=== PATIENT | female | born 1995 | race Caucasian/White ===

== ENCOUNTER 2021-02-10 06:29 | Emergency (ER) | payer OTHER ==
--- NOTE | 2021-02-10 06:59 | EDM.PDOC ---
ED HPI GENERAL MEDICAL PROBLEM - General Chief Complaint: Allergic Reaction Stated Complaint: POSSIBLE ALLEGIC REACTION Time Seen by Provider: 02/10/21 06:34 - History of Present Illness INITIAL COMMENTS - FREE TEXT/NARRATIVE: History of present illness: [] Patient woke up at 530 and her left arm was numb. She moved that about and it was slow to get better. This caused her some concern. She felt dizzy while still in bed but it was not a spinning vertigo nor lightheaded like like she would pass out. Then she began to have tingling in her fingers as well as tingling in her lips. That got better but now her legs are numb. Everything since the initial numbness in the left arm has been bilateral and symmetric. The patient has no motor weakness. She had no abnormal gait. She did note that she had palpitations and felt like her heart was racing briefly shortly after the episode. There is no diaphoresis. The patient took the first dose of her new rpescription Loestrin last night. Review of systems: As per history of present illness and below otherwise all systems reviewed and negative. Past medical history: The patient has a history of syncopal episodes. These are preceded by lightheadedness. She has had these occasionally throughout her life. Otherwise as per history of present illness and as reviewed below otherwise noncontributory. Surgical history: As per history of present illness and as reviewed below otherwise noncontributory. Social history: The patient is not sexually active . She is engaged to be and has initiated contraception before any contact. No reported history of drug or alcohol abuse. Family history: As per history of present illness and as reviewed below otherwise noncontributory. Physical exam: Constitutional - well developed, well-nourished and in no acute distress HEENT - normocephalic, no evidence of trauma - external nose and mouth normal - no mass in neck and no JVD - mucosae moist EYES - full EOM, PERRL, no icterus - no evidence of inflammation, injection, or drainage Respiratory - no respiratory distress, equal bilateral expansion, lungs clear to auscultation and no abnormal lung sounds Cardiovascular - Regular Rhythm with S1 and S2 appreciated and no murmur, gallop or rub. GI - abdomen soft without distension or organomegaly - normal bowel sounds - no guard or rebound Musculoskeletal no gross deformity of long bones or joints - no tenderness, swelling or edema Neurologic - Alert and oriented times four - CN II-XII grossly intact - motor sensory and coordination symmetrically normal. My customary neurologic exam including visual schaefer by confrontation, [place] and gait are normal. Psychiatric - appropriate mood and affect with normal thought content Hematologic - No petechiae or purpura - mucosa appropriate color and sclera not pale - normal nail bed color and refill Integument - no rash or evidence of trauma - normal turgor Diagnostics: [] Therapeutics: [] Impression: [] Plan: [] Definitive disposition and diagnosis as appropriate pending reevaluation and review of above. - Related Data Allergies Allergy/AdvReac Type Severity Reaction Status Date / Time azithromycin [From Zithromax] Allergy Rash Verified 02/10/21 06:54 Home Meds: Home Meds norethindrone-e.estradioL-iron [Lo Loestrin Fe 1-10] 1 tab PO DAILY 02/10/21 [History] ED ROS ALLERGIC REACTION - Review of Systems Review Of Systems: Comprehensive ROS is negative, except as noted in HPI. ED EXAM GENERAL NO PERIP PULSE - Physical Exam Exam: See Below Text/Narrative:: My physical exam is in the HPI #1 Interpretation EKG Interpretation Comments: EKG done at 7:07 AM sinus rhythm with a heart rate 82 and an axis of 80. The QRS is normal. There is irregularity of T wave in V4 and V5. There is no prior for comparison. Impression There is no significant abnormality in this EKG Course - Vital Signs Last Recorded V/S: Last Vital Signs Temp 36.0 C L 02/10/21 06:40 Pulse 68 02/10/21 07:25 Resp 16 02/10/21 07:25 BP 113/59 L 02/10/21 07:25 Pulse Ox 98 02/10/21 07:25 - Orders/Labs/Meds Orders: Active Orders 24 hr Category Date Time Status EKG 12 Lead [EKG Documentation Completion] [RC] STAT Care 02/10/21 07:04 Acti ve Labs: Laboratory Tests 02/10/21 02/10/21 Range/Units 07:15 07:15 WBC 5.48 (4.0-11.0) K/uL RBC 4.24 L (4.30-5.90) M/uL Hgb 12.7 (12.0-16.0) g/dL Hct 38.7 (36.0-46.0) % MCV 91.3 (80.0-98.0) fL MCH 30.0 (27.0-32.0) pg MCHC 32.8 (31.0-37.0) g/dL RDW Std Deviation 43.5 (28.0-62.0) fl RDW Coeff of Alayna 13 (11.0-15.0) % Plt Count 174 (150-400) K/uL MPV 10.30 (7.40-12.00) fL Neut % (Auto) 51.3 (48.0-80.0) % Lymph % (Auto) 35.0 (16.0-40.0) % Grant % (Auto) 9.7 (0.0-15.0) % Eos % (Auto) 3.8 (0.0-7.0) % Baso % (Auto) 0.2 (0.0-1.5) % Neut # (Auto) 2.8 (1.4-5.7) K/uL Lymph # (Auto) 1.9 (0.6-2.4) K/uL Grant # (Auto) 0.5 (0.0-0.8) K/uL Eos # (Auto) 0.2 (0.0-0.7) K/uL Baso # (Auto) 0.0 (0.0-0.1) K/uL Nucleated RBC % 0.0 /100WBC Nucleated RBCs # 0 K/uL Sodium 139 (136-145) mmol/L Potassium 4.1 (3.5-5.1) mmol/L Chloride 102 (98-107) mmol/L Carbon Dioxide 29.1 (21.0-32.0) mmol/L BUN 9 (7.0-18.0) mg/dL Creatinine 1.1 H (0.6-1.0) mg/dL Est Cr Clr Drug Dosing 74.70 mL/min Estimated GFR (MDRD) 59.6 ml/min Glucose 97 (74-106) mg/dL Calcium 8.8 (8.5-10.1) mg/dL Total Bilirubin 0.4 (0.2-1.0) mg/dL AST 11 L (15-37) IU/L ALT 22 (14-63) IU/L Alkaline Phosphatase 65 (46-116) U/L Total Protein 7.0 (6.4-8.2) g/dL Albumin 3.7 (3.4-5.0) g/dL Globulin 3.3 (2.6-4.0) g/dL Albumin/Globulin Ratio 1.1 (0.9-1.6) Departure - Departure Time of Disposition: 08:03 Disposition: Home, Self-Care 01 Condition: Good Clinical Impression: Paresthesia, Hyperventilation - Discharge Information Instructions: Paresthesia, Hyperventilation Referrals: PCP,Not In Area [Primary Care Provider] - Forms: ED Department Discharge Additional Instructions: Make an appointment with your doctor for follow-up. The only thing that I recommend to change now is that you make sure you drink plenty of fluids and some of those containing electrolytes such as electrolyte replacement solutions, sports drinks, soup etc. Please let your doctor know that your creatinine level was 1.1 mg/dL with the upper limits of normal here being 1.0. Careful attention to rehydration your doctor should recheck your creatinine. In the meantime avoid use of [id number] antiinflammatory medicine such as ibuprofen or naproxen. [facility] [address] [place] [address] [place] [address] The following information is given to patients seen in the emergency department who are being discharged to home. This information is to outline your options for follow-up care. We provide all patients seen in our emergency department with a follow-up referral. The need for follow-up, as well as the timing and circumstances, are variable depending upon the specifics of your emergency department visit. If you don't have a primary care physician on staff, we will provide you with a referral. We always advise you to contact your personal physician following an emergency department visit to inform them of the circumstance of the visit and for follow-up with them and/or the need for any referrals to a consulting specialist. The emergency department will also refer you to a specialist when appropriate. This referral assures that you have the opportunity for follow-up care with a specialist. All of these measure are taken in an effort to provide you with optimal care, which includes your follow-up. Under all circumstances we always encourage you to contact your private physician who remains a resource for coordinating your care. When calling for follow-up care, please make the office aware that this follow-up is from your recent emergency room visit. If for any reason you are refused follow-up, please contact the [facility] Emergency Department at and asked to speak to the emergency department charge nurse. Sepsis Event Note (ED) - Focused Exam Vital Signs: Vital Signs Temp Pulse Resp BP Pulse Ox 02/10/21 07:25 68 16 113/59 L 98 02/10/21 06:40 36.0 C L 79 18 122/60 98 - My Orders Last 24 Hours: My Active Orders 02/10/21 07:04 EKG 12 Lead [EKG Documentation Completion] [RC] STAT - Assessment/Plan Last 24 Hours: My Active Orders 02/10/21 07:04 EKG 12 Lead [EKG Documentation Completion] [RC] STAT
[2021-02-10 07:43] LABS: CARBON DIOXIDE,CO2 29.1 mmol/L (21.0-32.0); POTASSIUM,K 4.1 mmol/L (3.5-5.1)
== END 2021-02-10 08:14 | disposition home or self-care (01) ==
LOC: MW.ED 06:29
DX: R20.2 Paresthesia of skin (principal); R06.4 Hyperventilation; Z88.1 Allergy status to other antibiotic agents
CPT/HCPCS: 36415; 80053; 85025; 93005; 93010; 99283; 99284-25